=== PATIENT | female | born 1970 | race Caucasian/White ===

== ENCOUNTER → 2021-02-05 | Outpatient (CLI) | payer BC ==
[~2021-02-05] MED LIST: ASP81TEC PO; CHOL200035 PO; HCT25T PO; MULT-930 PO; NAPR-243 PO
--- NOTE | 2021-02-05 09:18 | Diagnostic Imaging Report ---
INDICATION: Routine screening. No prior mammograms are available for comparison. 2-D and 3-D bilateral screening mammography was performed with CAD. Scattered fibroglandular densities are identified bilaterally. No mass or malignant appearing microcalcifications are seen. Axillae are unremarkable. IMPRESSION: BI-RADS Category 1 No mammographic features suspicious for malignancy are identified. ACR BI-RADS Category 1: Negative. Result letter will be mailed to the patient. Note: At least 10% of breast cancer is not imaged by mammography. Dictated by: Dictated on workstation # [id number]
--- NOTE | 2021-02-08 15:37 | HISTORY AND PHYSICAL ---
DATE OF SERVICE: COLONOSCOPY HISTORY AND PHYSICAL HISTORY OF PRESENT ILLNESS: The patient is a 50-year-old white female referred by Dr. Johnson for screening colonoscopy. She reports her paternal grandfather was diagnosed with colon cancer in his 60s. Paternal grandmother was diagnosed with breast cancer, postmenopausal. Mother at age of 56 secondary to coronary artery disease and father at age of 36 with a gunshot wound. She is not aware of any other family history for colon cancer. She denies bright red blood per rectum, abdominal pain, diarrhea, constipation or change in weight. PAST MEDICAL HISTORY: Pertinent for situational related depression for which she has been recently started on Wellbutrin 150 mg daily. FAMILY HISTORY: As noted in the HPI. PAST SURGICAL HISTORY: She has had C-sections x2 and a total abdominal hysterectomy with bilateral salpingo-oophorectomy for benign reasons. SOCIAL HISTORY: She had a 01-aqoj-orly smoking history, quit 4 years ago. 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 REVIEW OF SYSTEMS: CONSTITUTIONAL: She denies night sweats, chills, fever, recent COVID exposure and is fully vaccinated. There has been a 10-pound increase in weight over the past year. CARDIOVASCULAR: She denies chest pain, orthopnea, PND, pedal edema or syncope. PULMONARY: She denies cough, wheezing, or any regular sputum production. Also denies hemoptysis. GASTROINTESTINAL: As noted in the HPI. PHYSICAL EXAMINATION: GENERAL: Reveals a pleasant white female, appears to be in no acute distress. HEENT: Unremarkable. Mallampati 2 pharyngeal configuration. NECK: Revealed no JVD, adenopathy or bruits. CHEST: Clear to auscultation. CARDIOVASCULAR: Reveals a regular rate and rhythm without murmur, S3 or S4. ABDOMEN: Soft, supple without mass or organomegaly. She has some mild left lower quadrant discomfort to palpation without rebound or guarding. Bowel sounds positive. No bruits noted. No evidence for abdominal aortic aneurysm on manual exam. EXTREMITIES: Reveal no cyanosis, clubbing or edema. ASSESSMENT AND PLAN: The patient is set up for screening colonoscopy with one paternal grandfather had history of colon cancer, she believes in his 60s. Grandmother had a history of breast cancer. Prep instructions with Suprep kit were given and questions were answered. I thank you for the referral of this pleasant lady. Job ID: [id number] DocumentID: [id number] Dictated Date: 02/08/2021 14:44:28 Lead Installer Date: 02/08/2021 15:36:21 Dictated By: TIN PATINO MD
== END ==
LOC: RAD 08:00
PROVIDERS: ATTEND Physician Assistant
DX: Z12.31 Encounter for screening mammogram for malignant neoplasm of breast (principal)
CPT/HCPCS: 77063; 77067

== ENCOUNTER 2021-02-11 05:39 | Outpatient (CLI) | payer BC ==
[~2021-02-11] VITALS: Ht 162.6 cm; Wt 90.8 kg
[2021-02-11] MEDS ORDERED: ATOR10TA PO (09:28)
[2021-02-11] MEDS ORDERED: MULT-974 PO (09:28)
[2021-02-11] MEDS ORDERED: BUPR150T9 PO (09:28)
== END 2021-02-11 11:06 | disposition home or self-care (01) ==
LOC: PREOP 05:39
PROVIDERS: ATTEND Internal Medicine
DX: Z01.818 Encounter for other preprocedural examination (principal)

== ENCOUNTER 2021-02-19 07:16 | Day surgery (SDC) | payer BC ==
[~2021-02-19] VITALS: Ht 162.6 cm; Wt 90.8 kg
[~2021-02-19 07:16] MED LIST changes: +ATOR10TA PO; +BUPR150T9 PO; +MULT-974 PO
[2021-02-19] MEDS ORDERED: PROPOFOL INJECTION 50 ML IV ONE (07:25)
[2021-02-19] MEDS ORDERED: MIDAZOLAM 2 MG/2 ML (VERSED) VIAL ONE (07:25)
[2021-02-19] MEDS ORDERED: LACTATED RINGERS 1,000 ML IV ONE (07:28)
[2021-02-19] MEDS ORDERED: LACTATED RINGERS 1,000 ML IV STA (07:31)
[2021-02-19 07:43] VITALS: BP 111/80
[2021-02-19] MEDS ORDERED: LIDOCAINE JELLY 2% 6 ML SYRINGE MM PRN (07:45)
[2021-02-19] MEDS ORDERED: LIDOCAINE JELLY 2% 6 ML SYRINGE ONE (07:54)
--- NOTE | 2021-02-19 08:01 | Pre-Op Note & Conscious Sedat ---
Pre-Operative Progress Note H&P Reviewed The H&P was reviewed, patient examined and no changes noted. Date H&P Reviewed: Feb 19, 2021 Time H&P Reviewed: 08:00 Conscious Sedation Pre-Proced ASA Score 2 For ASA 3 and 4: Consider anesthesia and medical clearance. Also, for patients with a history of failed moderate sedation consider anesthesia. Airway Lungs Heart ASA score ASA 1: a normal healthy patient ASA 2: a patient with a mild systemic disease (mid diabetes, controlled hypertension, obesity ASA 3: a patient with a severe systemic disease that limits activity (angina, COPD, prior Myocardial infarction) ASA 4: a patient with an incapacitating disease that is a constant threat to life (CHF, renal failure) ASA 5: a moribund patient not expected to survive 24 hrs. (ruptured aneurysm) ASA 6: a declared brain- patient whose organs are being harvested. For emergent operations, add the letter E after the classification Mallampati Classification Grade 2 Sedation Plan Analgesia, Amnesia, Plan communicated to team members, Discussed options with patient/fam, Discussed risks with patient/fam The patient is an appropriate candidate to undergo the planned procedure, sedation, and anesthesia. The patient immediately re-assessed prior to indication. TIN PATINO MD Feb 19, 2021 08:01
--- NOTE | 2021-02-19 08:50 | Anesthesia-General Post-Op ---
MAC Patient Condition Mental Status/LOC: Same as Preop Cardiovascular: Satisfactory Nausea/Vomiting: Absent Respiratory: Satisfactory Pain: Controlled Complications: Absent Post Op Complications Complications None Follow Up Care/Instructions Patient Instructions None needed. Anesthesiology Discharge Order Discharge Order Patient is doing well, no complaints, stable vital signs, no apparent adverse anesthesia problems. No complications reported per nursing. PADMINI OROSCO CRNA Feb 19, 2021 08:50
[2021-02-19 08:55] VITALS: BP 111/64
[2021-02-19 09:00] VITALS: BP 101/64
[2021-02-19 09:12] VITALS: BP 112/68
[2021-02-19 09:20] VITALS: BP 112/68
--- NOTE | 2021-02-19 16:21 | OPERATIVE REPORT ---
DATE OF SERVICE: COLONOSCOPY SUMMARY INDICATION FOR THE PROCEDURE: Screening colonoscopy. DESCRIPTION OF PROCEDURE: The patient was placed in the left lateral decubitus position. Prior to undergoing colonoscopy, digital rectal evaluation was performed. Anal sphincter tone was normal and the perianal reflexes intact. No abnormalities were noted on digital inspection of the anal canal or distal rectal vault. The colonoscope was then inserted into the rectum and under direct visualization advanced to cecum. The cecum was identified by identification of the ileocecal valve and cecal strap. Quality of prep was good. FINDINGS: There was no evidence for internal or external hemorrhoids. Present in the rectosigmoid junction was a small hyperplastic-appearing polyp. It was biopsied and ablated with no subsequent blood loss measuring 1 mm in size. Photographic documentation was obtained. The remainder of the rectum was unremarkable. The sigmoid colon, descending colon, splenic flexure, transverse colon, hepatic flexure, ascending colon and cecum were normal. No evidence for diverticular disease was noted. ASSESSMENT: One diminutive hyperplastic appearing 1 mm polyp was removed from the rectosigmoid junction with an otherwise normal colonoscopy to the cecum. As the patient is not aware of any family history for colon cancer, I would advocate consideration for repeat screening colonoscopy in 10 years. I thank you for the referral of this pleasant lady. Job ID: [id number] DocumentID: [id number] Dictated Date: 02/19/2021 11:34:12 Storage Manager Date: 02/19/2021 16:20:30 Dictated By: TIN PATINO MD MTDTamir
--- NOTE | 2021-02-22 11:35 | HISTORY AND PHYSICAL ---
DATE OF SERVICE: COLONOSCOPY HISTORY AND PHYSICAL HISTORY OF PRESENT ILLNESS: The patient is a 50-year-old white female referred by Dr. Johnson for screening colonoscopy. She reports her paternal grandfather was diagnosed with colon cancer in his 60s. Paternal grandmother was diagnosed with breast cancer, postmenopausal. Mother at age of 56 secondary to coronary artery disease and father at age of 36 with a gunshot wound. She is not aware of any other family history for colon cancer. She denies bright red blood per rectum, abdominal pain, diarrhea, constipation or change in weight. PAST MEDICAL HISTORY: Pertinent for situational related depression for which she has been recently started on Wellbutrin 150 mg daily. FAMILY HISTORY: As noted in the HPI. PAST SURGICAL HISTORY: She has had C-sections x2 and a total abdominal hysterectomy with bilateral salpingo-oophorectomy for benign reasons. SOCIAL HISTORY: She had a 50-nutu-gtrz smoking history, quit 4 years ago. 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 REVIEW OF SYSTEMS: CONSTITUTIONAL: She denies night sweats, chills, fever, recent COVID exposure and is fully vaccinated. There has been a 10-pound increase in weight over the past year. CARDIOVASCULAR: She denies chest pain, orthopnea, PND, pedal edema or syncope. PULMONARY: She denies cough, wheezing, or any regular sputum production. Also denies hemoptysis. GASTROINTESTINAL: As noted in the HPI. PHYSICAL EXAMINATION: GENERAL: Reveals a pleasant white female, appears to be in no acute distress. HEENT: Unremarkable. Mallampati 2 pharyngeal configuration. NECK: Revealed no JVD, adenopathy or bruits. CHEST: Clear to auscultation. CARDIOVASCULAR: Reveals a regular rate and rhythm without murmur, S3 or S4. ABDOMEN: Soft, supple without mass or organomegaly. She has some mild left lower quadrant discomfort to palpation without rebound or guarding. Bowel sounds positive. No bruits noted. No evidence for abdominal aortic aneurysm on manual exam. EXTREMITIES: Reveal no cyanosis, clubbing or edema. ASSESSMENT AND PLAN: The patient is set up for screening colonoscopy with one paternal grandfather had history of colon cancer, she believes in his 60s. Grandmother had a history of breast cancer. Prep instructions with Suprep kit were given and questions were answered. I thank you for the referral of this pleasant lady. Job ID: [id number] DocumentID: [id number] Dictated Date: 02/08/2021 14:44:28 Live In Companion Date: 02/08/2021 15:36:21 Dictated By: TIN PATINO MD <Dictated by TIN PATINO MD> <Electronically signed by TIN PATINO MD> 02/09/21 [address] [facility]
== END 2021-02-19 08:30 | disposition home or self-care (01) ==
LOC: ENDO 07:16
PROVIDERS: ATTEND Internal Medicine
DX: Z12.11 Encounter for screening for malignant neoplasm of colon (principal); K63.5 Polyp of colon; F32.9 Major depressive disorder, single episode, unspecified; E66.9 Obesity, unspecified; Z68.34 Body mass index [BMI] 34.0-34.9, adult; Z79.899 Other long term (current) drug therapy; Z90.710 Acquired absence of both cervix and uterus; Z90.722 Acquired absence of ovaries, bilateral; Z87.891 Personal history of nicotine dependence

== ENCOUNTER 2021-11-01 02:20 | Day surgery (SDC) | payer SELFPAY ==
[~2021-11-01] VITALS: Ht 165 cm; Wt 95.0 kg
[2021-11-01] VITALS (11 sets, daily range): BP systolic 82–155; BP diastolic 45–92
--- NOTE | 2021-11-01 02:39 | ED GI ---
General Chief Complaint: Abdominal/GI Problems Stated Complaint: N/V,ABD PAIN Nursing Triage Note: SHARP MID ABDOMINAL PAIN, N/V SINCE 2214 Source of Information: Patient History of Present Illness Date Seen by Provider: Nov 01, 2021 Time Seen by Provider: 02:38 Initial Comments PT ARRIVES VIA POV FROM HOME C/O ABDOMINAL PAIN WITH NAUSEA AND VOMITING SINCE 2214 TONIGHT PAIN IS IN MIDLINE--FROM EPIGASTRIC AREA TO PUBIC AREA, ALSO RADIATES TO LEFT FLANK HAS VOMITED 15-20 TIMES NOTHING WORSENS OR IMPROVES PAIN NO RELIEF WITH ZOFRAN AND MYLANTA HAD NORMAL BM TODAY NO URINARY SYMPTOMS--VOIDED JUST PRIOR TO ARRIVAL NO FEVER NO HISTORY OF SIMILAR PT HAS HAD PRIOR , BTL AND HYSTERECTOMY/BSO Allergies and Home Medications Allergies Coded Allergies: No Known Allergies (Unverified Allergy, Unknown, 02/05/21) Patient Home Medication List Home Medication List Reviewed: Yes Atorvastatin Calcium (Lipitor) 10 Mg Tablet, 10 MG PO HS, (Reported) Entered as Reported by: BRIAN JONES on 02/11/21 0928 Last Action: Reviewed Hydrocodone Bit/Acetaminophen (HYDROcodone/APAP 5 MG/325 MG TAB) 1 Tab Tab, 1 TAB PO Q8H PRN for PAIN-MODERATE (5-7) Prescribed by: MILAGRO JACINTO on 11/01/21 1205 Review of Systems Review of Systems Constitutional: no symptoms reported Respiratory: No Symptoms Reported Cardiovascular: No Symptoms Reported; Denies Chest Pain Gastrointestinal: See HPI, Abdominal Pain; Denies Constipated, Denies Diarrhea; Nausea, Vomiting Genitourinary: No Symptoms Reported Musculoskeletal: see HPI, back pain Skin: no symptoms reported Psychiatric/Neurological: No Symptoms Reported Endocrine: No Symptoms Reported Hematologic/Lymphatic: No Symptoms Reported Past Pgdmdnb-Mebmwv-Ikmmra Hx Patient Social History Tobacco Use?: Yes Tobacco type used: Cigarettes Smoking Status: Former Smoker (SMOKED 1 PPD, QUIT 2017) Substance use?: No Alcohol Use?: No Pt feels they are or have been: No Immunizations Up To Date Tetanus Booster (TDap): Unknown First/Initial COVID19 Vaccinat: YES Second COVID19 Vaccination Fletcher: YES Seasonal Allergies Seasonal Allergies: No Past Medical History Surgery/Hospitalization HX: HIGH CHOLESTEROL, C-SECT, BTL, HYST/BSO COLONOSCOPY 01/2021 Surgeries: Yes ( x2 and tubal) Section, Hysterectomy, Oophorectomy, Tubal Ligation Respiratory: No Cardiac: Yes High Cholesterol Neurological: No Reproductive Disorders: No Female Reproductive Disorders: Denies SPEECH LANGUAGE PATHOLOGIST ASSISTANT History: Hysterectomy, Menopausal Sexually Transmitted Disease: No HIV/AIDS: No Genitourinary: No Gastrointestinal: No Musculoskeletal: No Endocrine: No HEENT: No Cancer: No Psychosocial: No Integumentary: No Blood Disorders: No Physical Exam Vital Signs Vital Signs - First Documented 11/01/21 02:26 Temp 36.9 Pulse 76 Resp 18 B/P (MAP) 143/107 (119) Pulse Ox 99 O2 Delivery Room Air Capillary Refill : Less Than 3 Seconds Height/Weight/BMI Height: 5'5" Weight: 204lbs. oz. 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, no motor/sensory deficits, alert, oriented x 3 Skin: normal color, warm/dry Progress/Results/Core Measures Results/Orders Lab Results Laboratory Tests Test 11/01/21 02:39 11/01/21 02:40 Range/Units White Blood Count 16.8 H 4.3-11.0 10^3/uL Red Blood Count 4.52 3.80-5.11 10^6/uL Hemoglobin 14.2 11.5-16.0 g/dL Hematocrit 42 35-52 % Mean Corpuscular Volume 93 80-99 fL Mean Corpuscular Hemoglobin 31 25-34 pg Mean Corpuscular Hemoglobin Concent 34 32-36 g/dL Red Cell Distribution Width 11.9 10.0-14.5 % Platelet Count 235 130-400 10^3/uL Mean Platelet Volume 9.6 9.0-12.2 fL Immature Granulocyte % (Auto) 0 % Neutrophils (%) (Auto) 78 H 42-75 % Lymphocytes (%) (Auto) 15 12-44 % Monocytes (%) (Auto) 6 0-12 % Eosinophils (%) (Auto) 1 0-10 % Basophils (%) (Auto) 0 0-10 % Neutrophils # (Auto) 13.0 H 1.8-7.8 10^3/uL Lymphocytes # (Auto) 2.6 1.0-4.0 10^3/uL Monocytes # (Auto) 0.9 0.0-1.0 10^3/uL Eosinophils # (Auto) 0.2 0.0-0.3 10^3/uL Basophils # (Auto) 0.0 0.0-0.1 10^3/uL Immature Granulocyte # (Auto) 0.1 0.0-0.1 10^3/uL Neutrophils % (Manual) 71 % Lymphocytes % (Manual) 14 % Monocytes % (Manual) 6 % Eosinophils % (Manual) 3 % Band Neutrophils 6 % Blood Morphology Comment NORMAL Sodium Level 138 135-145 MMOL/L Potassium Level 3.6 3.6-5.0 MMOL/L Chloride Level 104 98-107 MMOL/L Carbon Dioxide Level 23 21-32 MMOL/L Anion Gap 11 5-14 MMOL/L Blood Urea Nitrogen 20 H 7-18 MG/DL Creatinine 0.82 0.60-1.30 MG/DL Estimat Glomerular Filtration Rate 73 BUN/Creatinine Ratio 24 Glucose Level 108 H 70-105 MG/DL Calcium Level 9.5 8.5-10.1 MG/DL Corrected Calcium 9.2 8.5-10.1 MG/DL Total Bilirubin 0.4 0.1-1.0 MG/DL Aspartate Amino Transf (AST/SGOT) 18 5-34 U/L Alanine Aminotransferase (ALT/SGPT) 19 0-55 U/L Alkaline Phosphatase 60 40-136 U/L Total Protein 7.9 6.4-8.2 GM/DL Albumin 4.4 3.2-4.5 GM/DL Amylase Level 64 25-125 U/L Lipase 36 8-78 U/L SARS-CoV-2 RNA (RT-PCR) Negative Negative My Orders Orders - TRACI POP DO Ed Iv/Invasive Line Start (11/01/21 02:37) Monitor-Rhythm Ecg Trace Only (11/01/21 02:37) Amylase (11/01/21 02:37) Cbc With Automated Diff (11/01/21 02:37) Comprehensive Metabolic Panel (11/01/21 02:37) Lipase (11/01/21 02:37) Ua Culture If Indicated (11/01/21 02:37) Ed Iv/Invasive Line Start (11/01/21 02:37) Lactated Ringers (Lr 1000 Ml Iv Solution (11/01/21 02:45) Ondansetron Injection (Zofran Injectio (11/01/21 02:45) Pantoprazole Injection (Protonix Injecti (11/01/21 03:00) Ketorolac Injection (Toradol Injection) (11/01/21 03:00) Covid 19 Inhouse Test (11/01/21 02:46) Manual Differential (11/01/21 02:39) Ct Abd/Pelvis Wo(Kidney Stone) (11/01/21 02:48) Acute Abd Series (11/01/21 02:55) Coronavirus Sars-Cov-2 So 2018 (11/01/21 02:40) Promethazine Injection (Phenergan Injec (11/01/21 04:15) Diphenhydramine Injection (Benadryl Inje (11/01/21 04:15) Ed Iv/Invasive Line Start (11/01/21 04:07) Lactated Ringers (Lr 1000 Ml Iv Solution (11/01/21 04:15) Promethazine Injection (Phenergan Injec (11/01/21 04:18) Diphenhydramine Injection (Benadryl Inje (11/01/21 04:18) Fentanyl Inj (Sublimaze Injection) (11/01/21 04:45) Medications Given in ED Current Medications Medications Dose Ordered Sig/Bob Route Start Time Stop Time Status Last Admin Dose Admin Diphenhydramine HCl 25 mg ONCE ONCE IVP 11/01/21 04:15 11/01/21 04:25 DC 11/01/21 04:21 25 MG Ketorolac Tromethamine 30 mg ONCE ONCE IVP 11/01/21 03:00 11/01/21 03:01 DC 11/01/21 02:59 30 MG Lactated Ringer's 1,000 ml @ 0 mls/hr Q0M ONCE IV 11/01/21 02:45 11/01/21 02:46 DC 11/01/21 02:42 0 MLS/HR Lactated Ringer's 1,000 ml @ 0 mls/hr Q0M ONCE IV 11/01/21 04:15 11/01/21 04:16 DC 11/01/21 04:21 0 MLS/HR Ondansetron HCl 4 mg ONCE ONCE IVP 11/01/21 02:45 11/01/21 02:46 DC 11/01/21 02:41 4 MG Pantoprazole 40 mg ONCE ONCE IV 11/01/21 03:00 11/01/21 03:01 DC 11/01/21 02:59 40 MG Promethazine HCl 25 mg ONCE ONCE IVP 11/01/21 04:15 11/01/21 04:25 DC 11/01/21 04:21 25 MG Vital Signs/I&O 11/01/21 11/01/21 02:26 02:59 Temp 36.9 36.9 Pulse 76 Resp 18 B/P (MAP) 143/107 (119) Pulse Ox 99 O2 Delivery Room Air Blood Pressure Mean: 119 Progress Progress Note : Progress Note GIVEN IV FLUIDS, ZOFRAN AND TORADOL WITH SIGNIFICANT IMPROVEMENT IN SYMPTOMS, BUT NOT COMPLETELY RESOLVED GIVEN FENTANYL, PHENERGAN AND BENADRYL WITH CONTINUED IMPROVEMENT IN SYMPTOMS Diagnostic Imaging Comments ABDOMEN XRAYS--PER RADIOLOGIST REPORT AT 0437 FINDINGS: Bowel gas pattern is normal. There is no free air. The lungs are clear. No edema. No pneumonia. No pleural effusion. No pneumothorax. Heart is normal in size. IMPRESSION: 1. Clear lungs. 2. Normal bowel gas pattern. CT ABDOMEN/PELVIS--PER RADIOLOGIST REPORT AT 0437 FINDINGS: Limited views of the lower thorax are unremarkable. The liver is normal without focal lesion. There is no biliary ductal dilation. Gallbladder is normal. Pancreas is normal. Spleen is normal. Adrenal glands are normal. The kidneys are normal. There is no hydronephrosis. Urinary bladder is normal. The appendix is dilated measuring 11 mm and a small amount of surrounding stranding. There is a fecalith in the appendix. Findings consistent with acute appendicitis. No abscess or perforation. Remaining bowel is normal. No free fluid or air. No abdominal or pelvic lymphadenopathy. Aorta is normal in caliber without aneurysm. There are no suspicious osseus lesions. IMPRESSION: 1. Dilated appendix with a mild amount of surrounding stranding and a fecalith. Findings consistent with acute appendicitis. No abscess or perforation. 2. No renal or ureteral stones. Reviewed: Reviewed by Me Departure Communication (Admissions) [id number]--SPOKE WITH DR. JACINTO, SURGEON, ACCEPTS PT FOR ADMIT Impression Primary Impression: Appendicitis Disposition: ADMITTED INPATIENT Condition: Improved Admissions Decision to Admit Reason: Admit from ER (General) Decision to Admit/Date: Nov 01, 2021 Time/Decision to Admit Time: 04:40 Departure-Patient Inst. Referrals: KYLAH GANDHI MD (PCP) Primary Care Physician ALLAN ELIZABETH (Family) Primary Care Physician Scripts Hydrocodone Bit/Acetaminophen (HYDROcodone/APAP 5 MG/325 MG TAB) 1 Tab Tab 1 TAB PO Q8H PRN for PAIN-MODERATE (5-7), #20 TAB Prov: MILAGRO JACINTO DO 11/01/21 TRACI POP DO Nov 01, 2021 02:39
[2021-11-01] MEDS ORDERED: ONDANSETRON 4 MG/2 ML (SDV) Z0FRAN IVP ONE (02:45)
[2021-11-01] MEDS ORDERED: LACTATED RINGERS 1,000 ML IV ONE ×2 (02:45→04:15)
[2021-11-01 02:47] LABS: BASOPHILS % (AUTO) 0 % (0-10); EOSINOPHILS # (AUTO) 0.2 10^3/uL (0.0-0.3); EOSINOPHILS % (AUTO) 1 % (0-10); HEMATOCRIT 42 % (35-52); HEMOGLOBIN 14.2 g/dL (11.5-16.0); LYMPHOCYTES # (AUTO) 2.6 10^3/uL (1.0-4.0); LYMPHOCYTES % (AUTO) 15 % (12-44); MEAN CORPUSCULAR HEMOGLOBIN 31 pg (25-34); MEAN CORPUSCULAR HGB CONC 34 g/dL (32-36); MEAN CORPUSCULAR VOLUME 93 fL (80-99); MEAN PLATELET VOLUME 9.6 fL (9.0-12.2); MONOCYTES # (AUTO) 0.9 10^3/uL (0.0-1.0); MONOCYTES % (AUTO) 6 % (0-12); NEUTROPHILS % (AUTO) 78 % (42-75); PLATELET COUNT 235 10^3/uL (130-400); WHITE BLOOD COUNT 16.8 10^3/uL (4.3-11.0)
[2021-11-01 02:56] LABS: ALBUMIN 4.4 GM/DL (3.2-4.5)
[2021-11-01 02:57] LABS: POTASSIUM 3.6 MMOL/L (3.6-5.0)
[2021-11-01 02:58] LABS: CALCIUM 9.5 MG/DL (8.5-10.1)
[2021-11-01 02:59] LABS: TOTAL PROTEIN 7.9 GM/DL (6.4-8.2)
[2021-11-01] MEDS ORDERED: PANTOPRAZOLE 40 MG (PROTONIX) VIAL IV ONE (03:00)
[2021-11-01] MEDS ORDERED: KETOROLAC 30 MG/ML VIAL IVP ONE (03:00)
[2021-11-01 03:01] LABS: BILIRUBIN,TOTAL 0.4 MG/DL (0.1-1.0)
[2021-11-01 03:03] LABS: CREATININE SERUM 0.82 MG/DL (0.60-1.30)
[2021-11-01 03:21] LABS: BAND NEUTROPHILS 6 %; EOSINOPHILS % (MANUAL) 3 %; LYMPHOCYTES % (MANUAL) 14 %; MONOCYTES % (MANUAL) 6 %; NEUTROPHILS % (MANUAL) 71 %; RBC MORPH NORMAL
[2021-11-01] MEDS ORDERED: PROMETHAZINE INJ 25 MG/ML (PHENERGAN) AMP IVP ONE (04:15)
[2021-11-01] MEDS ORDERED: diphenhydrAMINE 50 MG/ML INJ (BENADRYL) IVP ONE (04:15)
[2021-11-01] MEDS ORDERED: PROMETHAZINE INJ 25 MG/ML (PHENERGAN) AMP ONE (04:18)
[2021-11-01] MEDS ORDERED: diphenhydrAMINE 50 MG/ML INJ (BENADRYL) ONE (04:18)
--- NOTE | 2021-11-01 04:35 | Diagnostic Imaging Report ---
EXAMINATION: CT abdomen and pelvis without contrast. TECHNIQUE: Multiple contiguous axial images were obtained through the abdomen and pelvis without the use of intravenous contrast. All CT scans use one or more of the following dose optimizing techniques: automated exposure control, MA and/or KvP adjustment based on patient size and exam type or iterative reconstruction. HISTORY: Flank pain COMPARISON: None available. FINDINGS: Limited views of the lower thorax are unremarkable. The liver is normal without focal lesion. There is no biliary ductal dilation. Gallbladder is normal. Pancreas is normal. Spleen is normal. Adrenal glands are normal. The kidneys are normal. There is no hydronephrosis. Urinary bladder is normal. The appendix is dilated measuring 11 mm and a small amount of surrounding stranding. There is a fecalith in the appendix. Findings consistent with acute appendicitis. No abscess or perforation. Remaining bowel is normal. No free fluid or air. No abdominal or pelvic lymphadenopathy. Aorta is normal in caliber without aneurysm. There are no suspicious osseus lesions. IMPRESSION: 1. Dilated appendix with a mild amount of surrounding stranding and a fecalith. Findings consistent with acute appendicitis. No abscess or perforation. 2. No renal or ureteral stones. Dictated by: Dictated on workstation # [id number]
[2021-11-01] MEDS ORDERED: fentaNYL INJ 100 MCG/2 ML AMP IVP ONE ×2 (04:45)
--- NOTE | 2021-11-01 04:47 | Diagnostic Imaging Report ---
EXAMINATION: Abdominal series and chest radiograph HISTORY: Abdominal pain COMPARISON: None available. FINDINGS: Bowel gas pattern is normal. There is no free air. The lungs are clear. No edema. No pneumonia. No pleural effusion. No pneumothorax. Heart is normal in size. IMPRESSION: 1. Clear lungs. 2. Normal bowel gas pattern. Dictated by: Dictated on workstation # [id number]
[2021-11-01] MEDS ORDERED: D5 1/2 NS W/KCL 20 MEQ/L 1,000 ML IV ONE (05:47)
[2021-11-01] MEDS ORDERED: ONDANSETRON 4 MG/2 ML (SDV) Z0FRAN IVP PRN ×2 (06:15→13:00)
[2021-11-01] MEDS ORDERED: diphenhydrAMINE 50 MG/ML INJ (BENADRYL) IV PRN (06:15)
[2021-11-01] MEDS: D5 1/2 NS W/KCL 20 MEQ/L 1,000 ML IV SCH ×2 (06:15→13:19)
[2021-11-01] MEDS ORDERED: fentaNYL INJ 100 MCG/2 ML AMP IV PRN (06:15)
[2021-11-01] MEDS ORDERED: PROMETHAZINE INJ 25 MG/ML (PHENERGAN) AMP IVP PRN (06:15)
--- NOTE | 2021-11-01 07:39 | Consultation - Surgery ---
OK EDWARDS MED STUDENT 11/01/21 0739: History of Present Illness History of Present Illness Patient Consulted On(chevy/time) 11/01/21 07:34 Date Seen by Provider: Nov 01, 2021 Time Seen by Provider: 06:45 Reason for Visit: Abd Pain History of Present Illness Per ED: PT ARRIVES VIA POV FROM HOME C/O ABDOMINAL PAIN WITH NAUSEA AND VOMITING SINCE 2214 TONIGHT PAIN IS IN MIDLINE--FROM EPIGASTRIC AREA TO PUBIC AREA, ALSO RADIATES TO LEFT FLANK HAS VOMITED 15-20 TIMES NOTHING WORSENS OR IMPROVES PAIN NO RELIEF WITH ZOFRAN AND MYLANTA HAD NORMAL BM TODAY NO URINARY SYMPTOMS--VOIDED JUST PRIOR TO ARRIVAL NO FEVER NO HISTORY OF SIMILAR PT HAS HAD PRIOR , BTL AND HYSTERECTOMY/BSO When I spoke to patient this morning she was very agitated and kept going back to sleep when i tried to talk to her. She rates her pain about a 5, she has been NPO, She has had a BM since coming into hospital and she is having no problems urinating. She refused to answer any more questions. Allergies and Home Medications Allergies Coded Allergies: No Known Allergies (Unverified Allergy, Unknown, 02/05/21) Patient Home Medication List Atorvastatin Calcium (Lipitor) 10 Mg Tablet, 10 MG PO HS, (Reported) Entered as Reported by: BRIAN JONES on 02/11/21927 Last Action: Reviewed Discontinued Medications Bupropion HCl (Wellbutrin Sr) 150 Mg Tablet.er, 150 MG PO DAILY, (Reported) Discontinued Reason: No Longer Taking Entered as Reported by: BRIAN JONES on 02/11/21927 Last Action: Discontinued Multivitamin (Multi-Vitamin Daily) 1 Each Tablet, 1 EACH PO DAILY, (Reported) Discontinued Reason: No Longer Taking Entered as Reported by: BRIAN JONES on 02/11/21927 Last Action: Discontinued Past Tutoinq-Obgnqs-Qnayxh Hx Patient Social History Smoking Status: Former Smoker Type Used: Cigarettes 2nd Hand Smoke Exposure: No Recent Hopitalizations: No Alcohol Use?: No Have you traveled recently?: No Immunizations Up To Date Tetanus Booster (TDap): Unknown Date of Influenza Vaccine: Nov 01, 2021 Seasonal Allergies Seasonal Allergies: No Surgeries History of Surgeries: Yes ( x2 and tubal) Surgeries: Section, Hysterectomy, Oophorectomy, Tubal Ligation Respiratory History of Respiratory Disorde: No Cardiovascular History of Cardiac Disorders: Yes Cardiac Disorders: High Cholesterol Neurological History of Neurological Disord: No Reproductive System Hx Reproductive Disorders: No Sexually Transmitted Disease: No HIV/AIDS: No Female Reproductive Disorders: Denies FACTORY CLERK History: Hysterectomy, Menopausal Genitourinary History of Genitourinary Disor: No Gastrointestinal History of Gastrointestinal Di: No Musculoskeletal History of Musculoskeletal Dis: No Endocrine History of Endocrine Disorders: No HEENT History of HEENT Disorders: No Cancer History of Cancer: No Psychosocial History of Psychiatric Problem: No Integumentary History of Skin or Integumenta: No Blood Transfusions History of Blood Disorders: No Family Medical History Significant Family History: Diabetes Review of Systems-General Constitutional: chills, other (Pt is tired and agitated and does not want to an swer ROS questions) EENTM: No vision loss Respiratory: No cough, No short of breath Cardiovascular: No chest pain, No palpitations Gastrointestinal: abdominal pain; No constipation, No diarrhea, No hematemesis, No melena; nausea; No vomiting Genitourinary: No dysuria, No frequency, No hematuria Skin: No rash Psychiatric/Neurological: Denies Headache Physical Exam-General Problems Physical Exam Vital Signs Vital Signs - First Documented 11/01/21 02:26 Temp 36.9 Pulse 76 Resp 18 B/P (MAP) 143/107 (119) Pulse Ox 99 O2 Delivery Room Air Capillary Refill : Less Than 3 Seconds General Appearance: WD/WN, no apparent distress Eyes: Bilateral Eye PERRL, Bilateral Eye EOMI HEENT: pharynx normal (moist) Respiratory: lungs clear, normal breath sounds, no respiratory distress, no accessory muscle use Cardiovascular: regular rate, rhythm, no edema, no murmur Peripheral Pulses: 2+ Radial Pulses (R), 2+ Radial Pulses (L) Gastrointestinal: normal bowel sounds, soft, tenderness Extremities: no pedal edema, no calf tenderness, normal capillary refill Neurologic/Psychiatric: alert, oriented x 3 Skin: normal color, warm/dry Data Review Labs Laboratory Tests 11/01/21 02:39: White Blood Count 16.8H, Red Blood Count 4.52, Hemoglobin 14.2, Hematocrit 42, Mean Corpuscular Volume 93, Mean Corpuscular Hemoglobin 31, Mean Corpuscular Hemoglobin Concent 34, Red Cell Distribution Width 11.9, Platelet Count 235, Emily n Platelet Volume 9.6, Immature Granulocyte % (Auto) 0, Neutrophils (%) (Auto) 78H, Lymphocytes (%) (Auto) 15, Monocytes (%) (Auto) 6, Eosinophils (%) (Auto) 1, Basophils (%) (Auto) 0, Neutrophils # (Auto) 13.0H, Lymphocytes # (Auto) 2.6, Monocytes # (Auto) 0.9, Eosinophils # (Auto) 0.2, Basophils # (Auto) 0.0, Immature Granulocyte # (Auto) 0.1, Neutrophils % (Manual) 71, Lymphocytes % (Manual) 14, Monocytes % (Manual) 6, Eosinophils % (Manual) 3, Band Neutrophils 6, Blood Morphology Comment NORMAL, Sodium Level 138, Potassium Level 3.6, Chloride Level 104, Carbon Dioxide Level 23, Anion Gap 11, Blood Urea Nitrogen 20H, Creatinine 0.82, Estimat Glomerular Filtration Rate 73, BUN/Creatinine Ratio 24, Glucose Level 108H, Calcium Level 9.5, Corrected Calcium 9.2, Total Bilirubin 0.4, Aspartate Amino Transf (AST/SGOT) 18, Alanine Aminotransferase (ALT/SGPT) 19, Alkaline Phosphatase 60, Total Protein 7.9, Albumin 4.4, Amylase Level 64, Lipase 36 11/01/21 02:40: SARS-CoV-2 RNA (RT-PCR) Negative Radiology NAME: JENNIFER DAVID [facility] REC#: [id number] PT STATUS: REG ER : 1970 PHYSICIAN: TARCI POP DO ADMIT DATE: 11/01/21/ER Draft Date of Exam:11/01/21 CT ABD/PELVIS WO(KIDNEY STONE) EXAMINATION: CT abdomen and pelvis without contrast. TECHNIQUE: Multiple contiguous axial images were obtained through the abdomen and pelvis without the use of intravenous contrast. All CT scans use one or more of the following dose optimizing techniques: automated exposure control, MA and/or KvP adjustment based on patient size and exam type or iterative reconstruction. HISTORY: Flank pain COMPARISON: None available. FINDINGS: Limited views of the lower thorax are unremarkable. The liver is normal without focal lesion. There is no biliary ductal dilation. Gallbladder is normal. Pancreas is normal. Spleen is normal. Adrenal glands are normal. The kidneys are normal. There is no hydronephrosis. Urinary bladder is normal. The appendix is dilated measuring 11 mm and a small amount of surrounding stranding. There is a fecalith in the appendix. Findings consistent with acute appendicitis. No abscess or perforation. Remaining bowel is normal. No free fluid or air. No abdominal or pelvic lymphadenopathy. Aorta is normal in caliber without aneurysm. There are no suspicious osseus lesions. IMPRESSION: 1. Dilated appendix with a mild amount of surrounding stranding and a fecalith. Findings consistent with acute appendicitis. No abscess or perforation. 2. No renal or ureteral stones. Dictated on workstation # [id number] Dict: 11/01/21 0427 Trans: 11/01/21 0433 JUSTA [id number] Interpreted by: KYLAH WATERS MD Electronically signed by: NAME: JENNIFER DAVID [facility] REC#: [id number] PT STATUS: REG ER : 1970 PHYSICIAN: TRACI POP DO ADMIT DATE: 11/01/21/ER Draft Date of Exam:11/01/21 ACUTE ABD SERIES EXAMINATION: Abdominal series and chest radiograph HISTORY: Abdominal pain COMPARISON: None available. FINDINGS: Bowel gas pattern is normal. There is no free air. The lungs are clear. No edema. No pneumonia. No pleural effusion. No pneumothorax. Heart is normal in size. IMPRESSION: 1. Clear lungs. 2. Normal bowel gas pattern. Dictated on workstation # [id number] Dict: 11/01/21 0445 Trans: 11/01/21 0446 JUSTA [id number] Interpreted by: KYLAH WATERS MD Electronically signed by: Assessment/Plan Assessment/Plan Admission Diagonsis Appendicitis Assessment/Plan Appendicitis Hx of Abdominal surgeries Pt has fentanyl for pain control and is NPO, will go to surgery today. She should be good to go home after surgery as long as there are no complications. She is having bowel movements. She does not have any concerns or questions at this time. MILAGRO JACINTO DO 11/01/21 1046: History of Present Illness History of Present Illness Time Seen by Provider: 10:36 History of Present Illness Surgery asked to consult regarding appendicitis. Pt states the pain started yesterday and is now mostly "in the middle going down". She states she is exhausted and feels horrible. Has never had anything like this before. Associated with nausea and vomiting. It is a sharp, constant pain and at its worst it was 10 out of 10. Allergies and Home Medications Allergies Coded Allergies: No Known Allergies (Unverified Allergy, Unknown, 02/05/21) Patient Home Medication List Home Medication List Reviewed: Yes Atorvastatin Calcium (Lipitor) 10 Mg Tablet, 10 MG PO HS, (Reported) Entered as Reported by: BRIAN JONES on 02/11/21927 Last Action: Reviewed Discontinued Medications Bupropion HCl (Wellbutrin Sr) 150 Mg Tablet.er, 150 MG PO DAILY, (Reported) Discontinued Reason: No Longer Taking Entered as Reported by: BRIAN JONES on 02/11/21927 Last Action: Discontinued Multivitamin (Multi-Vitamin Daily) 1 Each Tablet, 1 EACH PO DAILY, (Reported) Discontinued Reason: No Longer Taking Entered as Reported by: BRIAN JONES on 02/11/21927 Last Action: Discontinued Past Buzmdue-Hfvkzn-Xrbkdz Hx Patient Social History Smoking Status: Current Everyday Smoker Surgeries History of Surgeries: Yes Surgeries: Section, Hysterectomy, Oophorectomy Respiratory History of Respiratory Disorde: No Cardiovascular History of Cardiac Disorders: Yes Cardiac Disorders: High Cholesterol Neurological History of Neurological Disord: No Genitourinary History of Genitourinary Disor: No Gastrointestinal History of Gastrointestinal Di: No Musculoskeletal History of Musculoskeletal Dis: No Endocrine History of Endocrine Disorders: No HEENT History of HEENT Disorders: No Loss of Vision: Denies Hearing Impairment: Denies Cancer History of Cancer: No Integumentary History of Skin or Integumenta: No Family Medical History Significant Family History: Diabetes Review of Systems-General Constitutional: chills, other (Pt is tired and agitated and does not want to answer ROS questions) EENTM: No vision loss, No mouth pain, No mouth swelling Respiratory: No cough, No short of breath Cardiovascular: No chest pain, No palpitations Gastrointestinal: abdominal pain; No constipation, No melena; nausea, vomiting Genitourinary: No dysuria, No frequency, No hematuria Musculoskeletal: No joint pain, No joint swelling, No muscle pain Skin: No change in color, No change in hair/nails, No rash Psychiatric/Neurological: Denies Anxiety, Denies Depressed, Denies Headache, Denies Tremors Physical Exam-General Problems Physical Exam General Appearance: WD/WN (but looks sick), mild distress Eyes: Bilateral Eye PERRL, Bilateral Eye EOMI HEENT: pharynx normal (moist); No scleral icterus (R), No scleral icterus (L) Neck: non-tender, supple Respiratory: lungs clear, normal breath sounds, no respiratory distress, no accessory muscle use Cardiovascular: regular rate, rhythm, no murmur Gastrointestinal: soft, tenderness, hernia (small umbilical) Back: no CVA tenderness, no vertebral tenderness Extremities: no pedal edema, no calf tenderness, normal capillary refill Neurologic/Psychiatric: alert, oriented x 3 Skin: normal color, warm/dry, tattoos/piercings Lymphatic: no adenopathy (neck, axilla or groin) Assessment/Plan Assessment/Plan Assessment/Plan Acute appendicitis Pt was admitted and started on IV fluids, pain control and anti-emetics. I reviewed the CT scan myself and could see an enlarged appendix and what looked like an appendicolith. I believe she needs her appendix removed and discussed this with her. Went over the procedure; risks and complications not limited to pain, bleeding , infection, scar and damage to bowel. All questions answered to her satisfaction and consent ordered. Will take her down to the OR. Supervisory-Addendum Brief Verification & Attestation Participated in pt care: history, MDM, physical Personally performed: exam, history, MDM, supervision of care Care discussed with: Medical Student Procedures: n/a Verification and Attestation of Medical Student E/M Service A medical student performed and documented this service. I then reviewed and verified all information documented by the medical student and made modifications to such information, when appropriate. I personally performed a physical exam, medical decision making and then discussed any differences between the notes and made revisions as necessary to create one note. Milagro Jacinto , 11/01/21 , 10:51 [place] EDWARDS MED STUDENT Nov 01, 2021 07:39 MILAGRO JACINTO DO Nov 01, 2021 10:46
[2021-11-01] MEDS ORDERED: LIDOCAINE/EPI 1%-1:200,000 (XYLOCAINE) 30 ML VIAL ONE (08:56)
[2021-11-01] MEDS ORDERED: LIDOCAINE PF 2% 5 ML (XYLOCAINE) VIAL ONE (09:14)
[2021-11-01] MEDS ORDERED: ROCURONIUM 10 MG/ML 5 ML SYRINGE IV ONE (09:14)
[2021-11-01] MEDS ORDERED: ONDANSETRON 4 MG/2 ML (SDV) Z0FRAN ONE (09:14)
[2021-11-01] MEDS ORDERED: proPOfol 200 MG/20 ML (DIPRIVAN) VIAL IV ONE (09:14)
[2021-11-01] MEDS ORDERED: fentaNYL INJ 100 MCG/2 ML AMP ONE (09:14)
[2021-11-01] MEDS ORDERED: MIDAZOLAM 2 MG/2 ML (VERSED) VIAL ONE (09:15)
[2021-11-01] MEDS ORDERED: ceFAZolin INJECTION 1,000 MG VIAL IV ONE (11:00)
[2021-11-01] MEDS ORDERED: ceFAZolin INJECTION 2,000 MG ONE (11:05)
[2021-11-01] MEDS ORDERED: GLYCOPYRROLATE 0.2 MG/ML (ROBINUL) 2 ML VIAL ONE (11:06)
[2021-11-01] MEDS: LACTATED RINGERS 1,000 ML IV PRN ×2 (11:08→11:54)
--- NOTE | 2021-11-01 12:03 | Progress Note-Post Operative ---
Post-Operative Progess Note Surgeon (s)/It Web Development Consultant (s) Surgeon MILAGRO JACINTO DO It Web Development Consultant: DEMETRIO Lima Pre-Operative Diagnosis acute appy Post-Operative Diagnosis same Procedure & Operative Findings Date of Procedure 11/01/21 Procedure Performed/Findings PROCEDURE: Laparoscopic appendectomy. COMPLICATIONS: None. INDICATIONS: The patient is a 51 year old female who has been having right lower quadrant abdominal pain. Patient's exam consistent with appendicitis. I discussed risk and benefits of laparoscopic appendectomy and all indicated procedures with the possibility being a normal appendix. The patient understands the risks and benefits and wishes to proceed. Consent was signed on the chart. DESCRIPTION OF PROCEDURE: The patient was taken to the operating suite, prepped and draped in a sterile fashion. Timeout was performed. Local anesthetic was infiltrated just below the umbilicus and 11-blade scalpel was used to make a skin incision. Cautery was used to dissect down to the fascia and scored. Kochers were used to grasp and elevate it and the abdomen was then entered. A 0 Vicryl was placed in a [id number] fashion for closure at the end of the case. The balloon trocar was inserted into the abdomen and pneumoperitoneum was achieved. Under direct visualization of the laparoscope, a 5 mm trocar was placed in the suprapubic region and a 5 mm trocar was placed in the left lower quadrant. Appendix was located, under the small bowel and attached to the mesentery by the inflammatory reaction. Attempted to dissect around the base of the appendix; but unable to get around. Therefore, elected to come across the mesoappendix with the ligasure in a stepwise fashion; clamping, coagulating and transecting. Thereby, coming across the appendiceal artery and taking the appendix down until it was only attached to the cecum. I was well away from the terminal ileum. Once at the base an Endo- RAMIRO 2.5 stapler was then fired across the base of the appendix. It was then placed in an Endobag and removed through the 12 mm trocar site. The abdomen was then irrigated and suctioned. No other pathology noted. The abdomen was then desufflated and the trocars were removed. The 0 Vicryl placed at the beginning of the case was then tied closing the 12 mm fascial defect. The skin was then closed using 4-0 Monocryl in a subcuticular fashion. The abdomen was then washed and dried and Skin Affix was placed over the incisions. The patient tolerated the procedure well without any complications and was taken to the recovery room in stable condition. Anesthesia Type GET Estimated Blood Loss Estimated blood loss (mL): scant Specimens/Packing Specimens Removed MILAGRO Elias DO Nov 01, 2021 12:03
[2021-11-01] MEDS ORDERED: ACHD5005 PO (12:04)
--- NOTE | 2021-11-01 12:05 | Discharge Inst-Surgical ---
Discharge Inst-Surgical Depart Medication/Instructions New, Converted or Re-Newed RX: Transmitted to Pharmacy Patient Instructions Follow up Appt: Make appointment for 1 week. [phone] Instructions: No lifting greater than 20 pounds. No strenuous activity. May shower in 24 hours, no tub bath or soaking. Use incentive spirometer at home as directed. No Smoking Skin/Wound Care: May remove bandages in am. You need to leave the Dermabond on incision it will fall off on it's own. Symptoms to Report: Appetite Changes, Extremity Discoloration, Numbness/Tingling, Swelling Increased, Bleeding Excessive, Eyesight Changes, Pain Increased, Urine Color Change, Constipation(Persistent), Fever over 101 degree F, Pain/Pressure in chest, Urinating Difficulty, Cough Up/Vomit Blood, Heart Beat Irreg/Pounding, Pain/Pressure in jaw, Cramps in feet or legs, Lightheadedness, Pain/Pressure in shoulder, Diarrhea(Persistent), Memory Changes Suddenly, Questions/Concerns, Weight gain consecutive days, Dizziness/Fainting, Nausea/Vomiting, Shortness of Breath, Weight gain over 2 pounds If questions or concerns contact your physician Or seek help at emergency department. Activity Activity as Tolerated: Yes Activity Instructions: Avoid Stress to Incision Driving Instructions: No Driving/Refer to Dr. Larson Discharge Diet: No Restrictions Diet After 24 Hours: Clear Liquid if Nauseous If Any Problems/Questions/Issu: Contact Your Physician, Go to Emergency Room Skin/Wound Care Infection Signs and Symptoms: Increased Redness, Foul Odor of Wound, Increased Drainage, Skin Itchy or Has a Rash, Increased Swelling, Temperature Above 101 F Wound Care Comment: heating pad to shoulder or neck tonight for pain Bathing Instructions: Shower Stitches/Redig/Dermabond Dis: Dermabond Ice Pack: Ice On and Off Site MILAGRO JACINTO DO Nov 01, 2021 12:05
[2021-11-01] MEDS ORDERED: morphine INJ 10 MG/ML 1ML (SYR OR VIAL) ONE (12:10)
[2021-11-01] MEDS ORDERED: NEOSTIGMINE 3 MG/3 ML VIAL ONE (12:14)
[2021-11-01] MEDS ORDERED: SEVOFLURANE (ULTANE) 15 ML INHAL SOLN ONE (12:15)
[2021-11-01] MEDS ORDERED: morphine INJ 10 MG/ML 1ML (SYR OR VIAL) IVP ONE (13:00)
[2021-11-01] MEDS ORDERED: HYDROmorphone 2 MG/ML VIAL (DILAUDID) IV ONE (13:00)
--- NOTE | 2021-11-02 10:08 | Anesthesia-General Post-Op ---
General Patient Condition Mental Status/LOC: Same as Preop Cardiovascular: Satisfactory Nausea/Vomiting: Absent Respiratory: Satisfactory Pain: Controlled Complications: Absent Post Op Complications Complications None Follow Up Care/Instructions Patient Instructions None needed. Anesthesia/Patient Condition Patient Condition Patient is doing well, no complaints, stable vital signs, no apparent adverse anesthesia problems. No complications reported per nursing. PAU PEÑALOZA CRNA Nov 02, 2021 10:08
== END 2021-11-01 17:50 | disposition home or self-care (01) ==
LOC: EDUNIT# 02:20 → ER 02:22 → SDC 04:40 → 4TH 04:40 → EDLOC 04:40 → 4TH 04:40 → UNDOADMIN 04:40 → UNDODISIN 17:50 → SDC 17:50
PROVIDERS: ATTEND Surgery
DX: K35.80 Unspecified acute appendicitis (principal); E78.00 Pure hypercholesterolemia, unspecified; Z20.822 Contact with and (suspected) exposure to COVID-19; Z79.899 Other long term (current) drug therapy; E66.9 Obesity, unspecified; Z68.35 Body mass index [BMI] 35.0-35.9, adult
CPT/HCPCS: 36415; 74022; 74176; 80053; 82150; 83690; 85007; 85027; 87081; 87635; 87636; 88304; 93041; 96361; 96374; 96375

== ENCOUNTER → 2022-06-14 | Outpatient (CLI) | payer OTHER ==
[~2022-06-14] MED LIST changes: +ACHD5005 PO
--- NOTE | 2022-06-14 17:04 | Diagnostic Imaging Report ---
EXAMINATION: Right knee radiographs. EXAM DATE: 06/14/2022 4:15 PM. COMPARISON: None available. HISTORY: RT KNEE PAIN. TECHNIQUE: Three views. FINDINGS: There is no acute fracture, dislocation, or destructive osseous process. The joint spaces are normal. The soft tissues are normal. IMPRESSION: No acute osseous abnormality. Dictated by: Dictated on workstation # [id number]
== END ==
LOC: RAD 15:46
PROVIDERS: ATTEND Internal Medicine
DX: M25.561 Pain in right knee (principal)
CPT/HCPCS: 73562

== ENCOUNTER → 2022-08-16 | Outpatient (CLI) | payer OTHER | LOC: ORTHO 09:16 | PROVIDERS: ATTEND Orthopaedic Surgery | DX: S83.241A Other tear of medial meniscus, current injury, right knee, initial encounter (principal); X58.XXXA Exposure to other specified factors, initial encounter | CPT/HCPCS: 99203 ==

== ENCOUNTER 2022-08-22 05:36 | Outpatient (CLI) | payer OTHER ==
[~2022-08-22] VITALS: Ht 165.1 cm; Wt 94.0 kg
[2022-08-22] MEDS ORDERED: LISD30CA3 PO (13:08)
== END 2022-08-22 13:18 | disposition home or self-care (01) ==
LOC: PREOP 05:36
PROVIDERS: ATTEND Orthopaedic Surgery
DX: Z01.818 Encounter for other preprocedural examination (principal)

== ENCOUNTER 2022-08-29 06:00 | Day surgery (SDC) | payer OTHER ==
[~2022-08-29] VITALS: Ht 165 cm; Wt 94.0 kg
[2022-08-29] VITALS (9 sets, daily range): BP systolic 105–134; BP diastolic 67–88
[~2022-08-29 06:00] MED LIST changes: +LISD30CA3 PO
[2022-08-29] MEDS ORDERED: ceFAZolin INJECTION 2,000 MG in NS (IVPB) 50 ML IV ONE (06:15)
[2022-08-29] MEDS: LACTATED RINGERS 1,000 ML IV PRN ×2 (06:44→09:09)
[2022-08-29] MEDS ORDERED: ONDANSETRON 4 MG/2 ML (SDV) Z0FRAN ONE (07:13)
[2022-08-29] MEDS ORDERED: proPOfol 200 MG/20 ML (DIPRIVAN) VIAL IV ONE (07:13)
[2022-08-29] MEDS ORDERED: fentaNYL INJ 100 MCG/2 ML AMP ONE (07:13)
[2022-08-29] MEDS ORDERED: LIDOCAINE PF 2% 5 ML (XYLOCAINE) VIAL ONE (07:13)
[2022-08-29] MEDS ORDERED: MIDAZOLAM 2 MG/2 ML (VERSED) VIAL ONE (07:13)
[2022-08-29] MEDS ORDERED: BUP/EPI 0.5% 1:200,000 (MARCAINE) 10ML VIAL IJ ONE (07:40)
[2022-08-29] MEDS ORDERED: SEVOFLURANE (ULTANE) 15 ML INHAL SOLN ONE (08:28)
--- NOTE | 2022-08-29 08:28 | Progress Note-Pre Operative ---
Pre-Operative Progress Note Date of Available H&P: Aug 16, 2022 Date H&P Reviewed: Aug 29, 2022 Time H&P Reviewed: 08:20 History & Physical: H&P Reviewed, Patient Examed, No changes noted Pre-Operative Diagnosis: Right Knee Medial Meniscus Tear DENILSON FLORES MD Aug 29, 2022 08:28
--- NOTE | 2022-08-29 09:15 | Operative Report - Ortho ---
Operative Report Surgeon (s)/Travograph Operator (s) Surgeon DENILSON FLORES MD Travograph Operator n/a Pre-Operative Diagnosis Right Knee Medial Meniscus Tear Post-Operative Diagnosis same Operative Report Date of Procedure: Aug 29, 2022 Name of Procedure Performed: Right Knee Arthroscopy with Partial Medial Meniscectomy Description & Findings After obtaining informed consent and marking the patient in the preoperative holding area, the patient was administered IV antibiotics and taken to the operating room. General anesthesia was induced. The left lower extremity was placed in the well leg nair and the right leg was placed in the arthroscopic nair. Surgical timeout was taken. The right lower extremity was prepped and draped in the usual sterile fashion. An anterolateral portal was established and a diagnostic knee arthroscopy was performed with the following findings: the patellofemoral portion of the joint demonstrated grade II change, the patella tracked well through the trochlear groove, the gutters were free of loose bodies, there was a medial meniscus tear through the the body and into the posterior horn, grade II change in the medial compartment, ACL was chronically deficient, lateral compartment with intact meniscus and articular cartilage. An anteromedial portal was established. Probe was inserted and the meniscal tear was explored. Using a combination of shaver and basket biters, the meniscal tear was debrided to a stable border. Probe was reinserted and confirmed that the mensicectomy was stable. Instruments were withdrawn. Wounds were closed with 3-0 nylon, injected with local anesthetic, and dressed with xeroform, 4x4s, ABD, cast padding, and BERNIE wrap. Patient tolerated the procedure well and was stable to the recovery room. Anesthesia Type General Estimated Blood Loss minimal Specimen(s) collected/removed None DENILSON FLORES MD Aug 29, 2022 09:15
[2022-08-29] MEDS ORDERED: OXC5T PO (09:17)
--- NOTE | 2022-08-29 09:23 | Anesthesia-General Post-Op ---
General Patient Condition Mental Status/LOC: Same as Preop Cardiovascular: Satisfactory Nausea/Vomiting: Absent Respiratory: Satisfactory Pain: Controlled Complications: Absent Post Op Complications Complications None Follow Up Care/Instructions Patient Instructions None needed. Anesthesia/Patient Condition Patient Condition Patient is doing well, no complaints, stable vital signs, no apparent adverse anesthesia problems. No complications reported per nursing. PADMINI OROSCO CRNA Aug 29, 2022 09:23
[2022-08-29] MEDS ORDERED: fentaNYL INJ 100 MCG/2 ML AMP IVP ONE (09:30)
[2022-08-29] MEDS ORDERED: ONDANSETRON 4 MG/2 ML (SDV) Z0FRAN IVP PRN (09:30)
== END 2022-08-29 10:40 | disposition home or self-care (01) ==
LOC: SDC 06:00
PROVIDERS: ATTEND Orthopaedic Surgery
DX: S83.241A Other tear of medial meniscus, current injury, right knee, initial encounter (principal); F17.210 Nicotine dependence, cigarettes, uncomplicated; M23.51 Chronic instability of knee, right knee; X58.XXXA Exposure to other specified factors, initial encounter
CPT/HCPCS: 87081

== ENCOUNTER → 2022-09-08 | Outpatient (CLI) | payer OTHER ==
[~2022-09-08] MED LIST changes: +OXC5T PO
== END ==
LOC: ORTHO 10:29
PROVIDERS: ATTEND Orthopaedic Surgery
DX: Z47.89 Encounter for other orthopedic aftercare (principal); I10 Essential (primary) hypertension